=== PATIENT | female | born 1965 | race Caucasian/White ===

== ENCOUNTER 2017-10-21 11:44 | Inpatient (IN) | payer OTHER ==
[~2017-10-21] VITALS: Ht 157.5 cm; Wt 88.5 kg
[2017-12-14] MEDS ORDERED: GRALISE600 MG PO (07:20)
[2017-12-14] MEDS ORDERED: METFORMIN HCL500 MG PO (07:21)
[2017-12-14] MEDS ORDERED: HYZAAR 50-12.51 EACH PO (07:21)
[2017-12-14] MEDS ORDERED: WELLBUTRIN SR150 MG PO (07:22)
[2017-12-14] MEDS ORDERED: WELLBUTRIN XL300 MG PO (07:22)
[2017-12-14] MEDS ORDERED: CLONAZEPAM2 MG PO (07:22)
[2017-12-14] MEDS ORDERED: TRAZODONE HCL100 MG PO (07:23)
[2017-12-21] MEDS ORDERED: DOCUSATE SODIU100 MG PO (09:56)
[2017-12-21] MEDS ORDERED: CLONAZEPAM1 MG PO (09:57)
[2017-12-21] MEDS ORDERED: PERCOCET 5-3251 EACH PO (09:57)
== END 2017-12-21 16:17 | disposition home or self-care (01) | DRG 472 ==
LOC: O/R 12-20 04:50 → PED 12-20 04:50 → SURH 12-20 08:30 → PED 12-20 14:49
PROVIDERS: Orthopaedic Surgery Orthopaedic Surgery of the Spine
PROC: 0RG20A0 Fusion of 2 or more Cervical Vertebral Joints with Interbody Fusion Device, Anterior Approach, Anterior Column, Open Approach (ICD-10-PCS; 2017-12-20)
PROC: 07DS3ZZ Extraction of Vertebral Bone Marrow, Percutaneous Approach (ICD-10-PCS; 2017-12-20)
PROC: 0RT30ZZ Resection of Cervical Vertebral Disc, Open Approach (ICD-10-PCS; principal; 2017-12-20 10:00)
DX: M50.022 Cervical disc disorder at C5-C6 level with myelopathy (principal); M47.12 Other spondylosis with myelopathy, cervical region; I10 Essential (primary) hypertension